=== PATIENT | female | born 1940 | race Caucasian/White ===

== ENCOUNTER → 2023-10-31 10:24 | Outpatient (REF) | payer MEDICARE, SELFPAY | LOC: HWRAD 10:24 | PROVIDERS: ATTENDING PHYSICIAN Nurse Practitioner Family | DX: M54.2 Cervicalgia (principal) | CPT/HCPCS: 72050; 72110 ==

== ENCOUNTER → 2023-12-05 12:33 | Outpatient (REF) | payer MEDICARE, SELFPAY | LOC: RAD 12:33 | PROVIDERS: ATTENDING PHYSICIAN Internal Medicine | DX: I73.9 Peripheral vascular disease, unspecified (principal) | CPT/HCPCS: 93922; 93925 ==

== ENCOUNTER → 2024-01-06 11:43 | Outpatient (REF) | payer MEDICARE, SELFPAY | LOC: HWWDC 11:43 | PROVIDERS: ATTENDING PHYSICIAN Internal Medicine | DX: Z12.31 Encounter for screening mammogram for malignant neoplasm of breast (principal) | CPT/HCPCS: 77063; 77067 ==

== ENCOUNTER → 2024-01-19 14:39 | Outpatient (REF) | payer OTHER, MEDICARE, SELFPAY | LOC: PAVMRI 14:39 | PROVIDERS: ATTENDING PHYSICIAN Orthopaedic Surgery; FAMILY PHYSICIAN Internal Medicine | DX: M51.36 Other intervertebral disc degeneration, lumbar region (principal); Z98.890 Other specified postprocedural states; M54.16 Radiculopathy, lumbar region; V89.2XXA Person injured in unspecified motor-vehicle accident, traffic, initial encounter | CPT/HCPCS: 72148 ==

== ENCOUNTER → 2024-01-30 12:17 | Outpatient (REF) | payer MEDICARE, SELFPAY | LOC: HWRCS 12:17 | PROVIDERS: ATTENDING PHYSICIAN Internal Medicine | DX: I35.0 Nonrheumatic aortic (valve) stenosis (principal); I35.1 Nonrheumatic aortic (valve) insufficiency | CPT/HCPCS: 93306 ==

== ENCOUNTER → 2024-07-03 10:25 | Outpatient (REF) | payer MEDICARE, SELFPAY | LOC: HWRAD 10:25 | PROVIDERS: ATTENDING PHYSICIAN Internal Medicine Rheumatology; FAMILY PHYSICIAN Internal Medicine | DX: M25.569 Pain in unspecified knee (principal) | CPT/HCPCS: 73560; 73565 ==

== ENCOUNTER → 2024-08-06 14:01 | Outpatient (REF) | payer MEDICARE, SELFPAY | LOC: HWRAD 14:01 | PROVIDERS: ATTENDING PHYSICIAN Internal Medicine Rheumatology; PRIMARYCARE PHYSICIAN Internal Medicine | DX: M81.0 Age-related osteoporosis without current pathological fracture (principal) | CPT/HCPCS: 77080 ==

== ENCOUNTER → 2024-08-11 09:22 | Outpatient (REF) | payer MEDICARE, SELFPAY | LOC: PAVMRI 09:22 | PROVIDERS: ATTENDING PHYSICIAN Internal Medicine Rheumatology; FAMILY PHYSICIAN Internal Medicine | DX: M79.659 Pain in unspecified thigh (principal) | CPT/HCPCS: 73718 ==

== ENCOUNTER → 2024-09-14 10:09 | Outpatient (REF) | payer MEDICARE, SELFPAY | LOC: RAD 10:09 | PROVIDERS: ATTENDING PHYSICIAN Internal Medicine Gastroenterology; FAMILY PHYSICIAN Internal Medicine | DX: R13.10 Dysphagia, unspecified (principal) | CPT/HCPCS: 74221 ==

== ENCOUNTER → 2025-01-24 14:01 | Outpatient (REF) | payer MEDICARE, SELFPAY | LOC: HWWDC 14:01 | PROVIDERS: ATTENDING PHYSICIAN Internal Medicine | DX: Z12.31 Encounter for screening mammogram for malignant neoplasm of breast (principal) | CPT/HCPCS: 77063; 77067 ==

== ENCOUNTER → 2025-02-01 11:06 | Outpatient (REF) | payer MEDICARE, SELFPAY | LOC: HWRCS 11:06 | PROVIDERS: ATTENDING PHYSICIAN Student in an Organized Health Care Education/Training Program; FAMILY PHYSICIAN Family Medicine | DX: I35.1 Nonrheumatic aortic (valve) insufficiency (principal) | CPT/HCPCS: 93306 ==

== ENCOUNTER → 2025-04-04 12:48 | Outpatient (REF) | payer MEDICARE, SELFPAY | LOC: HWRAD 12:48 | PROVIDERS: ATTENDING PHYSICIAN Internal Medicine Rheumatology; FAMILY PHYSICIAN Internal Medicine | DX: M17.10 Unilateral primary osteoarthritis, unspecified knee (principal); M25.561 Pain in right knee | CPT/HCPCS: 73552; 73560 ==

== ENCOUNTER 2025-04-18 07:50 | Emergency (ER) | payer MEDICARE, SELFPAY ==
[2025-04-18 07:55] VITALS: BP 147/98
[2025-04-18 07:57] VITALS: BP 161/81
[2025-04-18 08:00] VITALS: BMI 24.9
[2025-04-18] MEDS: TYLENOL 1000 MG PO (08:42)
--- NOTE | 2025-04-18 08:47 | ED.GENMED ---
History of Present Illness
General
Chief Complaint: Musculo-Skeletal Complaint
Time Seen by Provider: 04/18/25 08:08
History of Present Illness
History of Present Illness:
84-year-old female with known history of osteoporosis and history of colitis presenting for right hip pain. Patient notes increased right hip pain since yesterday. Notes that she chronically wakes up with pain in her right hip, status post
replacement about 4 years ago. She reports that she typically has pain upon getting out of bed and then will improve throughout the day. Yesterday she went to the grocery store. She notes pain in the right hip, took Tylenol and was able to sleep
throughout the night. However when she woke up this morning, increased pain. She did not take any pain medications prior to arrival. Notes difficulty ambulating secondary to the pain, ambulates with a walker at home. Denies any new injury or
trauma. Denies numbness or tingling. Denies fever. Denies abdominal pain. Denies additional acute medical complaint
Past History
Past History
ED Past Medical History: COPD, Fibromyalgia, GERD, Hypercholesterolemia, Other (OA, osteoporosis,) and Other (colitis); Negative IDDM or NIDDM
ED Past Surgical History: Gynecological, Orthopedic and Tonsilectomy
Social History
Tobacco: Non-smoker
Alcohol: None
Drug: None
Personal:
Living: with family
Phy Exam
Physical Exam
Physical Exam:
General: Well-appearing, no clinical signs of dehydration, nontoxic and in no acute distress
HEENT: protecting airway
Neck: appears supple
CV: Normal heart rate
Resp: No accessory muscle use, no increased work of breathing
Abd: No distention, nontender
Extremities: No deformities, no swelling. Mild tenderness of the right hip without overlying skin changes, no ecchymosis, no warmth. Range of motion grossly intact, slightly limited secondary to pain. Distal sensation and pulses intact
Neuro: alert, no focal neurologic deficit
: deferred
Rectal: deferred
Psych: Normal affect
Skin: Intact
Course
Orders/Labs/Results
Orders:
Orders
04/18/25 08:01
Hip, Right 2-3 Views [CR Hip - RT w/wo Pel 2-3 Vw*] Urgent
Comment:
Reason For Exam: pain
Include a pelvis x-ray?: Yes
04/18/25 08:38
Acetaminophen [Tylenol] 1,000 mg PO NOW STA
04/18/25 08:39
CT Pelvis W/o Iv Contrast Urgent
Comment:
Reason For Exam: right hip pain
04/18/25 10:15
Tramadol HCl [Ultram] 25 mg PO NOW ONE
04/18/25 10:16
Lidocaine [Lidocaine 4% Patch] 1 patch TOPICAL ONCE ONE
Apply Lidocaine patch(s) to:: right hip
Vital Signs
Initial and Last Documented VS:
Initial Vital Signs
Temp Pulse Resp Pulse Ox
97.8 F 61 18 94
04/18/25 07:54 04/18/25 07:54 04/18/25 07:54 04/18/25 07:54
Last Documented Vital Signs
Temp Pulse Resp BP Pulse Ox
97.8 F 61 18 161/81 92
04/18/25 07:54 04/18/25 07:54 04/18/25 07:54 04/18/25 07:57 04/18/25 08:51
MDM/Problems Addressed
MDM/Problems Addressed:
84-year-old female with history of osteoporosis presenting for right hip pain. Vital signs are normal.
On exam patient resting comfortably, no acute distress. Reassuring examination of the right hip. No infectious concerns, with range of motion grossly intact without concern for septic arthritis. No erythema or warmth on palpation. No present
neurovascular compromise. X-ray obtained prior to my assessment which shows that hardware is intact. No obvious sign of fracture or dislocation. There is evidence of severe osteoporosis, which is suspect etiology of patient's pain. Will
administer Tylenol for patient's pain. Notes that she cannot take NSAID products due to issues with colitis. Given patient's acute on chronic pain, will also obtain CT of the pelvis to ensure no occult fracture of the pelvis
10:45 - CT of the pelvis again without any acute findings. Continue to suspect osteoporosis and arthritis as etiology of patient symptoms. Patient was able to ambulate to the bathroom, still notes some discomfort. Will try tramadol however
otherwise given ability to ambulate and improvement in pain, ultimately feel stable for discharge with outpatient orthopedic follow-up. Return precautions discussed and patient verbalized understanding
*Pulse Oximetry
SaO2: 92
Oxygen Mode of Delivery: Room air
Patient hypoxic: no
*Critical Care Note
Total Time (30-74mins, 75-104mins- exclusive of procedures): Not Applicable
ED Attending Note
-
Portions of this chart may have been created with voice recognition software.� Occasional wrong word or��sound alike� substitutions may have occurred due to the inherent limitations of voice recognition software.
Discharge Plan
Departure
Prescriptions:
No Action
pravastatin 20 MG tablet
40 mg PO HS
furosemide 20 MG tablet
20 mg PO MOWEFR
acetaminophen 325 MG tablet
650 mg PO Q4HPRN PRN (Reason: mild pain/ARRIAGA/temp> 100.4F) 0RF
Prolia 60 MG/ML syringe
60 mg SQ [id number]
loperamide 2 MG capsule
2 mg PO Q4HPRN PRN (Reason: loose stools)
melatonin 5 MG tablet
10 mg PO HS
calcium carbonate [Tums] 300 mg (750 mg) Tablet,Chewable
300 - 600 mg PO ACHS
Cur-Qd-4
2 cap PO BID
cholestyramine (with sugar) 4 gram powder in packet
4 g PO TID PRN (Reason: diarrhea) Qty: 60 0RF
Interventions
Interventions:
*Risk Screen - Suicide Last Done: 04/18/25 07:54
*General Assessment Last Done: 04/18/25 07:54
*Neglect/Abuse Screening Last Done: 04/18/25 07:54
*ED COVID-19 Vaccine History Last Done: 04/18/25 08:40
*ED Influenza Vaccine History Last Done: 04/18/25 08:40
ED-Musculoskeletal Assessment Last Done: 04/18/25 08:31
Discharge Date and Time
Print Language: MALTESE
[2025-04-18] MEDS: LIDOCAINE 4% PATCH 1 PATCH TOPICAL (10:20)
[2025-04-18] MEDS: ULTRAM 25 MG PO (10:20)
== END 2025-04-18 13:35 | disposition home or self-care (01) ==
LOC: EMR 07:50
PROVIDERS: EMERGENCY PHYSICIAN Student in an Organized Health Care Education/Training Program; FAMILY PHYSICIAN Internal Medicine
DX: M25.551 Pain in right hip (principal); M19.90 Unspecified osteoarthritis, unspecified site; E78.00 Pure hypercholesterolemia, unspecified; J44.9 Chronic obstructive pulmonary disease, unspecified; M79.7 Fibromyalgia; M81.0 Age-related osteoporosis without current pathological fracture; Z96.641 Presence of right artificial hip joint
CPT/HCPCS: 99284; 72192; 73502